=== PATIENT | female | born 1950 | race Hispanic/Latino ===

== ENCOUNTER 2024-08-22 19:10 | Emergency (ER) | payer MEDICARE ==
[~2024-08-22] VITALS: Ht 144.8 cm; Wt 98.9 kg
[2024-08-22 20:01] LABS: BASOPHILS % 0.2 % (0.0-1.0); EOSINOPHILS % 0.2 % (0.0-6.0); HEMATOCRIT 38.1 % (34.2-44.1); HEMOGLOBIN 12.9 g/dL (12.0-16.0); LYMPHOCYTES # (AUTO) 1.6 (1.0-3.2); LYMPHOCYTES % 18.8 % (18.0-39.1); MEAN CORPUSCULAR HEMOGLOBIN 29.9 pg (28-32); MEAN CORPUSCULAR HGB CONC 33.9 g/dL (31-35); MEAN CORPUSCULAR VOLUME 88.2 fL (81-99); MONOCYTES # (AUTO) 0.5 (0.2-0.8); MONOCYTES % 6.1 % (4.4-11.3); NEUTROPHILS # (AUTO) 6.4 (2.1-6.9); NEUTROPHILS % 74.4 % (38.7-80.0); PLATELET COUNT 242 x10e3/uL (140-360); RED BLOOD COUNT 4.32 x10e6/uL (3.6-5.1); RED CELL DISTRIBUTION WIDTH 14.6 % (11.7-14.4); WHITE BLOOD COUNT 8.66 x10e3/uL (4.8-10.8)
[2024-08-22 20:17] LABS: ALBUMIN 3.5 g/dL (3.5-5.0); ALBUMIN/GLOBULIN RATIO 1.1 (0.8-2.0); BILIRUBIN,TOTAL 0.4 mg/dL (0.2-1.2); CALCIUM 8.6 mg/dL (8.4-10.2); CREATININE, SERUM 0.86 mg/dL (0.57-1.11); TOTAL PROTEIN 6.7 g/dL (6.5-8.1)
[2024-08-22 20:24] LABS: TROPONIN I 0.005 ng/mL (0-0.300)
[2024-08-22] MEDS ORDERED: PREDNISONE20 MG PO (21:44)
[2024-08-22] MEDS ORDERED: VENTOLIN HFA18 GM INH (21:44)
[2024-08-22] MEDS ORDERED: PAXLOVID 300-11 EAC1 PO (21:44)
[2024-08-22 21:49] VITALS: PULSE 81; RESP 16; TEMP 98.5; O2SAT 99
== END 2024-08-22 21:49 | disposition home or self-care (01) ==
LOC: ER 19:22
DX: R06.02 Shortness of breath (principal); R07.89 Other chest pain; U09.9 Post COVID-19 condition, unspecified; K80.20 Calculus of gallbladder without cholecystitis without obstruction; I51.7 Cardiomegaly; K44.9 Diaphragmatic hernia without obstruction or gangrene; I10 Essential (primary) hypertension; E78.5 Hyperlipidemia, unspecified; F32.A Depression, unspecified; R94.31 Abnormal electrocardiogram [ECG] [EKG]; Z85.43 Personal history of malignant neoplasm of ovary
CPT/HCPCS: 36415; 71260; 80053; 82550; 83690; 83880; 84484; 85025; 93005; 99284

== ENCOUNTER 2025-02-18 21:32 | Inpatient (IN) | payer MEDICARE ==
[~2025-02-18] VITALS: Ht 142.2 cm; Wt 100.2 kg
[~2025-02-18 21:32] MED LIST: PAXLOVID 300-11 EAC1 PO; PREDNISONE20 MG PO; VENTOLIN HFA18 GM INH
[2025-02-18 22:12] VITALS: TEMP 98.2
[2025-02-18 22:56] LABS: BASOPHILS % 0.6 % (0.0-1.0); EOSINOPHILS % 1.9 % (0.0-6.0); LYMPHOCYTES % 27.0 % (18.0-39.1); MONOCYTES % 6.7 % (4.4-11.3); NEUTROPHILS % 63.6 % (38.7-80.0); RED CELL DISTRIBUTION WIDTH 13.8 % (11.7-14.4)
[2025-02-18 23:16] LABS: EST GLOMERULAR FILTRATION RATE 90.0 ML/MIN (>=60)
[2025-02-18] MEDS: HYDRALAZINE HCL 20 MG/ML VIAL IV STA (23:58)
[2025-02-19] VITALS (11 sets, daily range): BP systolic 98–186; BP diastolic 47–73; PULSE 64–80; RESP 16–22; TEMP 97.9–98.2; O2SAT 96–100
[2025-02-19] MEDS ORDERED: SODIUM CHLORIDE FLUSH 10 ML SYR INJ PRN
[2025-02-19] MEDS ORDERED: HYDRALAZINE HCL 20 MG/ML VIAL IV PRN
[2025-02-19] MEDS ORDERED: ROSUVASTATIN CA20 MG (02:12)
[2025-02-19] MEDS ORDERED: LEXAPRO10 MG PO (02:12)
[2025-02-19] MEDS ORDERED: LISINOPRIL-HCT1 EAC1 (02:12)
[2025-02-19 06:18] LABS: BASOPHILS % 0.5 % (0.0-1.0); EOSINOPHILS % 1.8 % (0.0-6.0); LYMPHOCYTES % 21.0 % (18.0-39.1); MONOCYTES % 6.6 % (4.4-11.3); NEUTROPHILS % 69.8 % (38.7-80.0); RED CELL DISTRIBUTION WIDTH 13.9 % (11.7-14.4)
[2025-02-19 06:47] LABS: EST GLOMERULAR FILTRATION RATE 92.0 ML/MIN (>=60)
[2025-02-19] MEDS: ASPIRIN 81 MG ENTERIC COATED PO SCH (08:52)
[2025-02-19] MEDS: GABAPENTIN 300 MG CAP PO SCH (08:52)
[2025-02-19] MEDS: LISINOPRIL 20 MG TAB PO SCH ×2 (08:52→17:05)
[2025-02-19] MEDS: CARVEDILOL 3.125 MG TAB PO SCH (08:53)
[2025-02-19] MEDS ORDERED: SIMETHICONE 80 MG CHEW PO PRN (09:15)
[2025-02-19] MEDS ORDERED: BENZONATATE 100 MG CAP PO PRN (09:15)
[2025-02-19] MEDS ORDERED: POTASSIUM CHLORIDE 20 MEQ TAB CR PO PRN (09:15)
[2025-02-19] MEDS ORDERED: DEXTROSE 50% SYRINGE 50 ML IV PRN (09:15)
[2025-02-19] MEDS ORDERED: DOCUSATE SODIUM 100 MG CAP PO PRN (09:15)
[2025-02-19] MEDS ORDERED: ACETAMINOPHEN 325 MG TAB PO PRN (09:15)
[2025-02-19] MEDS ORDERED: DIPHENHYDRAMINE HCL 25 MG CAP PO PRN (09:15)
[2025-02-19] MEDS ORDERED: LIDOCAINE 4% PATCH TP PRN (09:15)
[2025-02-19] MEDS ORDERED: ALBUTEROL/IPRATROPIUM 3 ML NEB NEB PRN (09:15)
[2025-02-19] MEDS: HYDRALAZINE HCL 20 MG/ML VIAL IV PRN (12:02)
[2025-02-19] MEDS: Morphine 4mg INJECTION 4 MG/ML INJ IV PRN (15:43)
[2025-02-19] MEDS: ONDANSETRON HCL INJ 2MG/ML 2ML 2 MG/ML VIAL IV PRN (15:43)
[2025-02-19 15:44] LABS: CHOL/HDL RATIO 3.7 (3.0-3.6); LDL CHOLESTEROL 148.0 MG/DL (60-130)
[2025-02-19] MEDS: KETOROLAC TROMETHAMINE 30 MG/ML VIAL IV SCH (16:15)
[2025-02-19] MEDS ORDERED: GABAPENTIN 100 MG CAP PO SCH (17:00)
[2025-02-19] MEDS: ENOXAPARIN SOD INJ 40 MG/0.4 ML SYR SC SCH (17:05)
[2025-02-19] MEDS: CRESTOR 10MG PO SCH (20:51)
[2025-02-19] MEDS: ATORVASTATIN 40 MG TAB PO SCH (20:51)
[2025-02-19] MEDS ORDERED: MELATONIN 5 MG TABLET PO PRN (21:00)
[2025-02-19] MEDS: ACETAMINOPHEN 325 MG TAB PO PRN (21:36)
[2025-02-20] VITALS (12 sets, daily range): BP systolic 110–162; BP diastolic 38–81; PULSE 56–80; RESP 16–20; TEMP 97.7–98.2; O2SAT 96–100
[2025-02-20 06:20] LABS: BASOPHILS % 0.9 % (0.0-1.0); EOSINOPHILS % 2.7 % (0.0-6.0); LYMPHOCYTES % 20.9 % (18.0-39.1); MONOCYTES % 7.4 % (4.4-11.3); NEUTROPHILS % 67.8 % (38.7-80.0); RED CELL DISTRIBUTION WIDTH 14.2 % (11.7-14.4)
[2025-02-20 06:58] LABS: CHOL/HDL RATIO 4.1 (3.0-3.6); EST GLOMERULAR FILTRATION RATE 66.0 ML/MIN (>=60); LDL CHOLESTEROL 132.0 MG/DL (60-130); PHOSPHORUS 4.5 MG/DL (2.3-4.7)
[2025-02-20] MEDS: ESCITALOPRAM OXALATE 10 MG TAB PO SCH (09:32)
[2025-02-20] MEDS: PANTOPRAZOLE SOD 40 MG TABEC PO SCH (09:32)
[2025-02-21] VITALS (10 sets, daily range): BP systolic 111–163; BP diastolic 40–82; PULSE 57–68; RESP 16–20; TEMP 97.7–98.5; O2SAT 96–100
[2025-02-22] VITALS (8 sets, daily range): BP systolic 112–188; BP diastolic 55–87; PULSE 56–65; RESP 16–20; TEMP 97.6–98.6; O2SAT 95–100
[2025-02-22] MEDS: LISINOPRIL 20 MG TAB PO SCH (09:44)
== END 2025-02-22 18:09 | disposition home or self-care (01) | DRG 304 ==
LOC: ER 21:38 → ERHOLD 23:58 → MED/SURG3 02-19 01:48
PROVIDERS: ADMIT Internal Medicine; ATTEND Internal Medicine
DX: I16.0 Hypertensive urgency (principal); I11.0 Hypertensive heart disease with heart failure; I50.31 Acute diastolic (congestive) heart failure; Z68.42 Body mass index [BMI] 45.0-49.9, adult; I25.10 Atherosclerotic heart disease of native coronary artery without angina pectoris; E66.01 Morbid (severe) obesity due to excess calories; E78.5 Hyperlipidemia, unspecified; G62.9 Polyneuropathy, unspecified; R53.81 Other malaise; F32.A Depression, unspecified; Z79.52 Long term (current) use of systemic steroids; Z85.43 Personal history of malignant neoplasm of ovary; Z90.49 Acquired absence of other specified parts of digestive tract; Z90.710 Acquired absence of both cervix and uterus; Z92.21 Personal history of antineoplastic chemotherapy; Z92.3 Personal history of irradiation
CPT/HCPCS: 36415; 70450; 71045; 80048; 80053; 80061; 82550; 83036; 83690; 83735; 83880; 84100; 84443; 84484; 85025; 93005; 93306; 94799; 99284; J0360; J1650; J1885; J2270; J2405; J2470